=== PATIENT | female | born 2000 | race Caucasian/White ===

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

== ENCOUNTER 2021-02-27 17:10 | Emergency (ER) | payer OTHER ==
[2021-02-27 17:40] VITALS: BMI 30.2
[2021-02-28 02:14] VITALS: BP 113/68; PULSE 71; TEMP 98
== END 2021-02-28 03:24 | disposition home or self-care (01) ==
LOC: JER 17:10
DX: R10.2 Pelvic and perineal pain (principal)
CPT/HCPCS: 36415; 76830-TC; 81003; 84703; 87086; 87491; 87591; 99284-25